=== PATIENT | female | born 1990 | race Caucasian/White ===

== ENCOUNTER → 2020-07-01 08:56 | Outpatient (BNVA) | payer MEDICAID, SELFPAY | PROVIDERS: Family Provider Family Medicine; PCP Nurse Practitioner Family; Visit Provider Obstetrics & Gynecology | DX: Z34.81 Encounter for supervision of other normal pregnancy, first trimester (principal) | CPT/HCPCS: 81025 ==

== ENCOUNTER → 2020-07-05 13:33 | Outpatient (BNVA) | payer MEDICAID, SELFPAY | PROVIDERS: Family Provider Family Medicine; PCP Nurse Practitioner Family; Visit Provider Nurse Practitioner Women's Health | DX: Z34.81 Encounter for supervision of other normal pregnancy, first trimester (principal); Z82.79 Family history of other congenital malformations, deformations and chromosomal abnormalities | CPT/HCPCS: 81000 ==

== ENCOUNTER → 2020-07-18 13:08 | Outpatient (BNVA) | payer MEDICAID, SELFPAY | PROVIDERS: Family Provider Family Medicine; PCP Nurse Practitioner Family; Visit Provider Obstetrics & Gynecology | DX: O99.411 Diseases of the circulatory system complicating pregnancy, first trimester (principal); R00.0 Tachycardia, unspecified; O99.611 Diseases of the digestive system complicating pregnancy, first trimester; K21.9 Gastro-esophageal reflux disease without esophagitis; R10.11 Right upper quadrant pain; Z82.79 Family history of other congenital malformations, deformations and chromosomal abnormalities; Z3A.10 10 weeks gestation of pregnancy | CPT/HCPCS: 80076; 80307; 81000; 84443; 85027; 86592; 86762; 86803; 86850; 86900; 87086; 87340; 87806 ==

== ENCOUNTER → 2020-07-25 08:33 | Outpatient (BNVA) | payer MEDICAID, SELFPAY | PROVIDERS: Family Provider Family Medicine; PCP Nurse Practitioner Family; Visit Provider Obstetrics & Gynecology | DX: Z34.81 Encounter for supervision of other normal pregnancy, first trimester (principal) | CPT/HCPCS: 81000; 88175 ==

== ENCOUNTER → 2020-08-26 13:07 | Outpatient (BNVA) | payer MEDICAID, SELFPAY | PROVIDERS: Family Provider Family Medicine; PCP Nurse Practitioner Family; Visit Provider Nurse Practitioner Women's Health | DX: Z34.82 Encounter for supervision of other normal pregnancy, second trimester (principal) | CPT/HCPCS: 81000; 82105; 87491; 87591; 87661 ==

== ENCOUNTER → 2020-09-26 10:40 | Outpatient (BNVA) | payer MEDICAID, SELFPAY | PROVIDERS: Family Provider Family Medicine; PCP Nurse Practitioner Family; Visit Provider Obstetrics & Gynecology | DX: Z34.82 Encounter for supervision of other normal pregnancy, second trimester (principal) | CPT/HCPCS: 81000 ==

== ENCOUNTER → 2020-10-24 09:10 | Outpatient (BNVA) | payer MEDICAID, SELFPAY | PROVIDERS: Family Provider Family Medicine; PCP Nurse Practitioner Family; Visit Provider Obstetrics & Gynecology | DX: Z34.82 Encounter for supervision of other normal pregnancy, second trimester (principal) | CPT/HCPCS: 81000 ==

== ENCOUNTER → 2020-11-21 08:42 | Outpatient (BNVA) | payer MEDICAID, SELFPAY | PROVIDERS: Family Provider Family Medicine; PCP Nurse Practitioner Family; Visit Provider Obstetrics & Gynecology | DX: Z34.82 Encounter for supervision of other normal pregnancy, second trimester (principal); Z82.79 Family history of other congenital malformations, deformations and chromosomal abnormalities | CPT/HCPCS: 81000; 82950; 85025 ==

== ENCOUNTER 2020-12-05 15:40 | Outpatient (CLI) | payer MEDICAID, SELFPAY ==
[2020-12-05 15:52] VITALS: BMI 31.6
[2020-12-05 16:13] VITALS: BP 135/67; PULSE 80; TEMP 36.4
[2020-12-05 16:17] LABS: Basophils % 0.3 %; Eosinophils # 0.1 10^3/uL (0.0-0.8); Eosinophils % 0.8 %; Hemoglobin 12.7 g/dL (11.5-15.3); Lymphocytes # 1.8 10^3/uL (0.8-4.8); Lymphocytes % 18.6 %; Mean Corpuscular HGB Conc 32.6 g/dL (30.0-36.0); Mean Corpuscular Hemoglobin 29.5 pg (28.0-34.0); Mean Corpuscular Volume 90.5 fL (81-99); Monocytes # 0.5 10^3/uL (0.2-0.9); Monocytes % 5.6 %; Neutrophils # 7.02 10^3/uL (1.8-7.7); Neutrophils % 73.7 %; Nucleated Red Blood Cells % 0 %; Platelet Count 166 10^3/cmm (130-400); Red Blood Count 4.31 10^6/uL (4.1-5.3); Red Cell Distribution Width 12.4 % (12.1-15.1); White Blood Count 9.5 10^3/uL (4.0-10.0)
[2020-12-05 16:28] VITALS: BP 122/60; PULSE 87
[2020-12-05 16:31] LABS: Alanine Aminotransferase 12 U/L (0-33); Albumin Level 4.2 g/dL (3.5-5.2); Alkaline Phosphatase 119 IU/L (35-105); Anion Gap 17.7 (5-19); Aspartate Amino Transferase 19 U/L (0-32); Blood Urea Nitrogen 6 mg/dL (6-20); Calcium 9.1 mg/dL (8.5-10.5); Carbon Dioxide 23 mmol/L (22-29); Chloride 102 mmol/L (98-107); Globulin 2.8 g/dL (1.3-4.6); Glomerular Filtration Rate 143.9 mL/min (90-130); Glucose 91 mg/dL (65-115); Osmolality Calculated 285 mOsm/kg (285-295); Potassium 3.7 mmol/L (3.5-5.1); Sodium 139 mmol/L (136-145); Total Bilirubin 0.2 mg/dL (0.15-1.2); Uric Acid 2.9 mg/dL (2.4-5.7)
[2020-12-05 16:38] LABS: Urine Creatinine 62 mg/dL (28-217); Urine Protein Random 9 mg/dL
[2020-12-05 16:39] LABS: UPRO/UCREAT Ratio 0.15 mg/mg CR
[2020-12-05 16:43] VITALS: BP 128/64; PULSE 88
[2020-12-05 16:45] LABS: Add Urine Culture? No; Bilirubin Urine Neg (Negative); Blood Urine Neg (Negative); Glucose Urine UA Norm (Normal); Ketones Urine Negative (Negative); Leukocyte Esterase Urine Negative (Negative); Nitrate Urine Negative (Negative); Protein Urine Neg (Negative); RBC Urine 0-4 /hpf (0-2); Urine Appearance Clear (CLEAR); Urine Color Yellow (Yellow); Urobilinogen Urine Norm (Negative); pH Urine 6.5 (5-7)
[2020-12-05 16:58] VITALS: BP 128/66; PULSE 80
[2020-12-06 16:31] LABS: Total Volume, Urine 1600 mL
[2020-12-06 23:19] LABS: Urine Total Protein 9.3 mg/24HR (0-150); Urine Total Protein 24 Hour 148.8 mg/dL (0-150)
== END 2020-12-05 17:20 | disposition home or self-care (01) ==
LOC: OPOB 15:47 → OBGYN 15:48
PROVIDERS: Obstetrics & Gynecology; Family Provider Family Medicine; PCP Nurse Practitioner Family; Visit Provider Obstetrics & Gynecology
DX: O16.9 Unspecified maternal hypertension, unspecified trimester (principal); Z3A.00 Weeks of gestation of pregnancy not specified
CPT/HCPCS: 36415; 59025; 80053; 81000; 81001; 82570; 84156; 84550; 85025; 99211

== ENCOUNTER 2020-12-06 10:55 | Outpatient (CLI) | payer MEDICAID, SELFPAY | END 2020-12-06 10:56 | disposition home or self-care (01) | LOC: LAB 12-09 10:56 | PROVIDERS: PCP Nurse Practitioner Family; Visit Provider Obstetrics & Gynecology | DX: I95.89 Other hypotension (principal) | CPT/HCPCS: 84156 ==

== ENCOUNTER → 2020-12-15 08:52 | Outpatient (BNVA) | payer MEDICAID, SELFPAY | PROVIDERS: PCP Nurse Practitioner Family; Visit Provider Obstetrics & Gynecology | DX: Z34.82 Encounter for supervision of other normal pregnancy, second trimester (principal) | CPT/HCPCS: 81000 ==

== ENCOUNTER 2020-12-28 08:42 | Outpatient (CLI) | payer MEDICAID, SELFPAY | END 2020-12-28 08:43 | disposition home or self-care (01) | LOC: LAB 02-08 10:16 | PROVIDERS: PCP Nurse Practitioner Family; Visit Provider Obstetrics & Gynecology | DX: Z34.80 Encounter for supervision of other normal pregnancy, unspecified trimester (principal) | CPT/HCPCS: 81000 ==

== ENCOUNTER → 2021-01-16 08:43 | Outpatient (BNVA) | payer MEDICAID, SELFPAY | PROVIDERS: PCP Nurse Practitioner Family; Visit Provider Obstetrics & Gynecology | DX: Z34.80 Encounter for supervision of other normal pregnancy, unspecified trimester (principal) | CPT/HCPCS: 81000; 87081 ==

== ENCOUNTER 2021-01-23 10:16 | Outpatient (CLI) | payer MEDICAID, SELFPAY ==
[2021-01-23] VITALS (8 sets, daily range): BP systolic 127–141; BP diastolic 74–82; PULSE 71–80; RESP 18; TEMP 36.2; BMI 34.9
[2021-01-23 10:45] LABS: Add Urine Microscopic? NO; Charge for UA Resulting for Rev
[2021-01-23 10:49] LABS: Bilirubin Urine Neg (Negative); Blood Urine Neg (Negative); Glucose Urine UA Norm (Normal); Ketones Urine Negative (Negative); Leukocyte Esterase Urine Negative (Negative); Nitrate Urine Negative (Negative); Protein Urine Neg (Negative); Specific Gravity, Urine 1.005 (1.005-1.030); Urine Appearance Clear (CLEAR); Urine Color Straw (Yellow); Urobilinogen Urine Norm (Negative); pH Urine 7 (5-7)
[2021-01-23 10:52] LABS: Basophils % 0.3 %; Eosinophils # 0.1 10^3/uL (0.0-0.8); Eosinophils % 0.7 %; Hematocrit 39.2 % (37.0-47.0); Hemoglobin 12.7 g/dL (11.5-15.3); Lymphocytes # 1.4 10^3/uL (0.8-4.8); Lymphocytes % 15.4 %; Mean Corpuscular HGB Conc 32.4 g/dL (30.0-36.0); Mean Corpuscular Hemoglobin 29.2 pg (28.0-34.0); Mean Corpuscular Volume 90.1 fL (81-99); Mean Platelet Volume 13.1 fL (7.4-10.4); Monocytes # 0.5 10^3/uL (0.2-0.9); Monocytes % 5.3 %; Neutrophils # 7.04 10^3/uL (1.8-7.7); Nucleated Red Blood Cells % 0 %; Platelet Count 136 10^3/cmm (130-400); Red Blood Count 4.35 10^6/uL (4.1-5.3); Red Cell Distribution Width 12.7 % (12.1-15.1); White Blood Count 9.1 10^3/uL (4.0-10.0)
[2021-01-23 11:10] LABS: Alanine Aminotransferase 11 U/L (0-33); Albumin Level 3.7 g/dL (3.5-5.2); Alkaline Phosphatase 150 IU/L (35-105); Anion Gap 14.9 (5-19); Aspartate Amino Transferase 18 U/L (0-32); Blood Urea Nitrogen 7 mg/dL (6-20); Calcium 8.9 mg/dL (8.5-10.5); Carbon Dioxide 22 mmol/L (22-29); Chloride 102 mmol/L (98-107); Glomerular Filtration Rate 143.9 mL/min (90-130); Glucose 76 mg/dL (65-115); Osmolality Calculated 277 mOsm/kg (285-295); Potassium 3.9 mmol/L (3.5-5.1); Sodium 135 mmol/L (136-145); Total Bilirubin 0.2 mg/dL (0.15-1.2); Total Protein 6.7 g/dL (6.6-8.7); Uric Acid 4.4 mg/dL (2.4-5.7)
[2021-01-23 11:46] LABS: Urine Creatinine 23 mg/dL (28-217); Urine Protein Random 5 mg/dL
[2021-01-23 11:47] LABS: UPRO/UCREAT Ratio 0.22 mg/mg CR
--- NOTE | 2021-01-23 12:40 | PC.NURSE ---
SPECIAL ORDERS FOR PATIENT TO TAKE B/P TWICE A DAY AND KEEP RECORD AND BRING THEM WITH HER ON SATURDAY WHEN SHE COMES IN FOR NST.
== END 2021-01-23 12:10 | disposition home or self-care (01) ==
LOC: OPOB 10:18 → OBGYN 10:20
PROVIDERS: PCP Nurse Practitioner Family; Visit Provider Obstetrics & Gynecology
DX: O16.9 Unspecified maternal hypertension, unspecified trimester (principal)
CPT/HCPCS: 59025; 80053; 81000; 81003; 82570; 84156; 84550; 85025; 99211

== ENCOUNTER 2021-01-26 16:05 | Outpatient (CLI) | payer MEDICAID, SELFPAY ==
[2021-01-26 16:05] VITALS: BMI 33.7
[2021-01-26 16:25] VITALS: BP 130/82; PULSE 85; TEMP 36.4
[2021-01-26 16:30] VITALS: RESP 16
[2021-01-26 16:35] VITALS: BP 127/78; PULSE 86
[2021-01-26 16:45] VITALS: BP 126/78; PULSE 106
[2021-01-26 16:55] VITALS: BP 128/76; PULSE 92
== END 2021-01-26 17:05 | disposition home or self-care (01) ==
LOC: OPOB 16:12 → OBGYN 16:15
PROVIDERS: PCP Nurse Practitioner Family; Visit Provider Obstetrics & Gynecology
DX: O13.9 Gestational [pregnancy-induced] hypertension without significant proteinuria, unspecified trimester (principal); Z3A.00 Weeks of gestation of pregnancy not specified
CPT/HCPCS: 59025; 99211

== ENCOUNTER 2021-01-30 13:18 | Inpatient (IN) | payer MEDICAID, SELFPAY ==
[2021-01-30] VITALS (40 sets, daily range): BP systolic 120–149; BP diastolic 58–103; PULSE 75–173; RESP 16–18; TEMP 36.4–37.6; BMI 33.5
[2021-01-30 10:12] LABS: Add Urine Microscopic? NO; Charge for UA Resulting for Rev
[2021-01-30 10:27] LABS: Basophils % 0.4 %; Eosinophils % 0.4 %; Hematocrit 38.5 % (37.0-47.0); Hemoglobin 12.3 g/dL (11.5-15.3); Lymphocytes # 0.9 10^3/uL (0.8-4.8); Lymphocytes % 16.3 %; Mean Corpuscular HGB Conc 31.9 g/dL (30.0-36.0); Mean Corpuscular Hemoglobin 28.9 pg (28.0-34.0); Mean Corpuscular Volume 90.6 fl (81-99); Mean Platelet Volume 12.9 fL (7.4-10.4); Monocytes # 0.5 10^3/uL (0.2-0.9); Monocytes % 7.9 %; Neutrophils # 4.22 10^3/uL (1.8-7.7); Neutrophils % 74.1 %; Nucleated Red Blood Cells % 0 %; Platelet Count 117 10^3/cmm (130-400); Red Blood Count 4.25 10^6/uL (4.1-5.3); Red Cell Distribution Width 13.2 % (12.1-15.1); White Blood Count 5.7 10^3/uL (4.0-10.0)
[2021-01-30 10:29] LABS: Bilirubin Urine Neg (Negative); Blood Urine Neg (Negative); Glucose Urine UA Norm (Normal); Ketones Urine Negative (Negative); Leukocyte Esterase Urine Negative (Negative); Nitrate Urine Negative (Negative); Protein Urine Neg (Negative); Specific Gravity, Urine 1.005 (1.005-1.030); Urine Appearance Clear (CLEAR); Urine Color Yellow (Yellow); Urobilinogen Urine Norm (Negative); pH Urine 7 (5-7)
[2021-01-30 10:40] LABS: Alanine Aminotransferase 10 U/L (0-33); Albumin Level 3.6 g/dL (3.5-5.2); Alkaline Phosphatase 158 IU/L (35-105); Aspartate Amino Transferase 19 U/L (0-32); Blood Urea Nitrogen 7 mg/dL (6-20); Calcium 8.4 mg/dL (8.5-10.5); Carbon Dioxide 20 mmol/L (22-29); Chloride 105 mmol/L (98-107); Globulin 2.7 g/dL (1.3-4.6); Glomerular Filtration Rate 143.9 mL/min (90-130); Glucose 70 mg/dL (65-115); Osmolality Calculated 282 mOsm/kg (285-295); Sodium 138 mmol/L (136-145); Total Bilirubin 0.2 mg/dL (0.15-1.2); Total Protein 6.3 g/dL (6.6-8.7); Uric Acid 4.9 mg/dL (2.4-5.7)
[2021-01-30 10:41] LABS: Urine Creatinine 27 mg/dL (28-217); Urine Protein Random 6 mg/dL
[2021-01-30 10:43] LABS: Anion Gap 17.4 (5-19); Potassium 4.4 mmol/L (3.5-5.1)
[2021-01-30 10:43] LABS: UPRO/UCREAT Ratio 0.22 mg/mg CR
[2021-01-30] MEDS: miSOPROStol 100 mcg tablet 25 MCG VAGINAL (13:08)
[2021-01-30] MEDS: dextrose 5%-lactated ringers 1,000 ML 125 ML IV (17:17)
[2021-01-30] MEDS: oxytocin 30 UNIT/500 ML BAG IV (17:17)
[2021-01-30] MEDS: fentaNYL 50 mcg/mL INJ 2mL IVP (18:51)
--- NOTE | 2021-01-30 20:45 | P.HPUD_ITS ---
Labor & Delivery H&P Update Date of Procedure: January 30, 2021 Date H&P Performed: 01/23/21 H&P update information: I have reviewed H&P completed within last 30 days, I have examined patient prior to procedure and H&P is in [facility] EMR on date indicated Changes to previous documentation: Elevated blood pressure-rule out preeclampsia-diagnosis of gestational hypertension Admission Diagnosis:
--- NOTE | 2021-01-30 21:46 | PM.DELIVERY ---
Delivery Note: Date of delivery: January 30, 2021 - PRE-DELIVERY DIAGNOSIS: 30-year-old 4 para 2-0-1-2 at 38 weeks and 6 days gestation Induction of labor for gestational hypertension GBS negative Declined Covid screening POST-DELIVERY DIAGNOSIS: Vaginal delivery on 01/30/2021 Gestational hypertension PROCEDURE: Vaginal delivery on 01/30/2021 ANESTHESIA: None DELIVERING PHYSICIAN: Isabell Davis FACOG PRE-DELIVERY COURSE: Ms. Whitaker is a 30-year-old 4 para 2-0-1-2 at 38 weeks and 6 days who received care with Dr. Leroy at [facility]. She presented for a routine scheduled visit on 01/30/2021 and was noted to have a blood pressure in the 160s over 110s and was sent over to labor and delivery for further evaluation. She had a similarly elevated blood pressure at her previous visit and have the diagnosis of gestational hypertension. On labor and delivery blood pressures were largely normal with occasional 1 4 also over 90s but no further elevations in the severe range. Preeclamptic labs were done and were normal except for mild thrombocytopenia with a platelet count of 117,000. Protein creatinine ratio was 0.22. Given the diagnosis of gestational hypertension and the fact that she was 38 weeks and 6 days induction of labor was recommended and induction was started under the care of Dr. Monzon with Cytotec placed at noon. Prior to placement of Cytotec her cervix was 2 cm 50% and -3 station and she was 3 cm 50% and -3 station 4 hours later. She had a regular contractions and Pitocin was started at 5:20 PM. Pitocin was titrated to a maximum of 3 mIU and she had regular contractions every 2 to 3 minutes. She had spontaneous rupture of membranes at 6:30 PM on 01/30/2021 with clear fluid. Cervix was 4 cm 70% and -2 station and the head was well applied. She grew uncomfortable after this. She was 7 cm an hour later and Pitocin was turned off as she was progressing well. She continued to progress well and was fully dilated at 9:18 PM and +2 station and feeling the urge to push. tracing was category 1 thus far. She remains largely normotensive for the remainder of her labor course. She denies any preeclamptic symptoms. DELIVERY NOTE: She was set up in lithotomy position and was pushing effectively. She was noted to be +3 station and continued pushing well. The head delivered in KESHIA position, nuchal cord x1 was present and was unable to be reduced.. The shoulders and rest of the body followed with her next push and delivered through the nuchal cord without any difficulty. The baby's mouth and nose were suctioned and the baby was placed on the mother's belly. Once cord pulsations stopped the cord was clamped and cut. The placenta delivered spontaneously intact with membranes and was discarded. The fundus was noted to be firm and well contracted. The vagina and cervix were inspected and no cervical or sulcal lacerations were noted. The perineum was noted to be intact Baby boy, Jeremy born at 21:22 PM on 01/30/2021 with 8/8/9, weighing 8 pounds 4 ounces, 3750 g, 20-3/4 inches long. Placenta was delivered spontaneously intact with membranes at 20 1:29 PM. Cotyledons were intact , eccentrically inserted umbilical cord with 3 vessels noted. Estimated blood loss -150 mL. Complications-none, both baby and mother were left to recover in a stable condition This documentation was created by [employer] mogul operator software (known for inherent mogul operator error). Every effort was made to assure accuracy of mogul operator. Any obvious errors or omissions should be clarified with the author of the document. Coding Level of Care Code Acute Cad Administrator for Raman Kelly
[2021-01-30] MEDS: ibuprofen 800 mg tablet PO (22:26)
[2021-01-30] MEDS: benzocaine-menthol 78 gm Canister 1 SPRAY TOPICAL (22:27)
[2021-01-30] MEDS: lanolin oint 7 gm 1 APPLIC TOPICAL (22:27)
[2021-01-31] VITALS (21 sets, daily range): BP systolic 115–138; BP diastolic 58–73; PULSE 65–97; TEMP 36.1–37.1; O2SAT 97–99
[2021-01-31] MEDS: ibuprofen 800 mg tablet PO ×3 (09:03→21:25)
[2021-01-31] MEDS: docusate sodium 100 mg Capsule PO ×2 (09:03→17:53)
[2021-01-31] MEDS: prenatal vitamin Capsule 1 CAP PO (09:04)
--- NOTE | 2021-01-31 10:20 | PM.PN ---
Subjective Subjective: Interval history: SUBJECTIVE: Ms Whitaker is doing well today. She states that she is just having some cramping while breast-feeding but otherwise pain is overall pretty well controlled. She denies any vaginal bleeding and is bonding well with her son. She denies fever, chills, shortness of breath and chest pain is overall feeling pretty good. She denies any dizziness, nausea, vomiting. She has no questions or concerns and wants to stay until tomorrow to recover well from that leg.. She does not want her son to have a circumcision. OBJECTIVE/PHYSICAL EXAM: Gen.: No acute distress Heart: S1-S2 heard, regular rate and rhythm Lungs: Clear to auscultation bilaterally Abdomen: Soft, fundus firm below umbilicus, Legs: No calf tenderness, trace bilateral pitting pedal edema. ASSESSMENT AND PLAN: 30-year-old 4 para 3-0-1-3 status post vaginal delivery, day #1 -Continue routine care-p.o. pain medication as needed, encourage ambulation -Perineal care as needed -Postdelivery hemoglobin stable at 12 and platelet count is stable at 116 -Anticipate discharge home tomorrow if she continues to do well -Gestational hypertension-asymptomatic and normotensive since delivery-anticipate 1 week follow-up for blood pressures. Vitals/I&O/Wt Last Vital Signs Temp 97.0 F L 01/31/21 07:30 Pulse 79 01/31/21 08:35 Resp 16 01/30/21 18:51 BP 138/64 01/31/21 08:16 Pulse Ox 97 01/31/21 08:35 01/30/21 01/31/21 01/31/21 22:59 06:59 14:59 Intake Total 906.850 / 906.850 593.150 / 1500.000 Output Total 2400 / 2400 Balance 906.850 / 906.850 -1806.850 / -900.000 Weight last 48 hrs Weight 221 lb Data : 01/31/21 09:57 01/30/21 09:54 Attestations Medical Necessity Statement*: Patient will need to stay 1 more midnight to recover from delivery Coding Level of Care Code Acute Leaf Conditioner Helper for Raman Kelly
[2021-01-31 11:06] LABS: Hematocrit 36.5 % (37.0-47.0); Mean Corpuscular HGB Conc 32.9 g/dL (30.0-36.0); Mean Corpuscular Hemoglobin 29.3 pg (28.0-34.0); Mean Corpuscular Volume 89.2 fl (81-99); Mean Platelet Volume 13.6 fL (7.4-10.4); Platelet Count 116 10^3/cmm (130-400); Red Blood Count 4.09 10^6/uL (4.1-5.3); Red Cell Distribution Width 13.2 % (12.1-15.1); White Blood Count 8.7 10^3/uL (4.0-10.0)
--- NOTE | 2021-01-31 12:14 | PC.NURSE ---
This nurse offered the educational videos to the parents. This is their third child, so they said they would be declining at this time. This nurse took in the & Care book, as well as the Breast Feeding book. The patient and her spouse expressed appreciation for the resources.
--- NOTE | 2021-01-31 13:25 | ANE.PACU2 ---
Inpatient post-anesthesia follow up: Vital signs: Temperature 97.0 F Pulse Rate 79 Respiratory Rate 16 Blood Pressure 138/64 Pulse Oximetry 97 Oxygen Delivery Me thod Room Air Oxygen Flow Rate Fraction of Inspir ed Oxygen Hydration adequate: Yes Nausea and vomiting: No Pain level: 2 Mental status: Baseline
--- NOTE | 2021-01-31 14:24 | PC.NURSE ---
Dietary at bedside taking food order for dinner tonight and breakfast tomorrow.
--- NOTE | 2021-01-31 14:56 | PC.NURSE ---
Patient signed off on certificate at this time. Certificate placed in chart.
--- NOTE | 2021-01-31 18:06 | PC.NURSE ---
Room cleaned up, trash and dirty linens taken out, dinner trays removed, and ice water refreshed by this nurse and Lottie Trujillo RN.
[2021-02-01 04:03] VITALS: BP 129/75; PULSE 93
--- NOTE | 2021-02-01 06:25 | PM.OBGYDC ---
Discharge Providers BODY SHOP MECHANIC Date of Admission: 01/30/21 13:18 Date of Discharge: 02/01/21 Attending Provider at Admission: Saeed Monzon MD Attending Provider at Discharge: marta Primary Care Provider: PRE-DELIVERY DIAGNOSIS: 30-year-old 4 para 2-0-1-2 at 38 weeks and 6 days gestation Induction of labor for gestational hypertension GBS negative Declined Covid screening POST-DELIVERY DIAGNOSIS: Vaginal delivery on 01/30/2021 Gestational hypertension PROCEDURE: Vaginal delivery on 01/30/2021 ANESTHESIA: None DELIVERING PHYSICIAN: Isabell Davis FACELLI PRE-DELIVERY COURSE: Ms. Wihtaker is a 30-year-old 4 para 2-0-1-2 at 38 weeks and 6 days who received care with Dr. Martinez at [facility]. She presented for a routine scheduled visit on 01/30/2021 and was noted to have a blood pressure in the 160s over 110s and was sent over to labor and delivery for further evaluation. She had a similarly elevated blood pressure at her previous visit and have the diagnosis of gestational hypertension. On labor and delivery blood pressures were largely normal with occasional 1 4 also over 90s but no further elevations in the severe range. Preeclamptic labs were done and were normal except for mild thrombocytopenia with a platelet count of 117,000. Protein creatinine ratio was 0.22. Given the diagnosis of gestational hypertension and the fact that she was 38 weeks and 6 days induction of labor was recommended and induction was started under the care of Dr. Monzon with Cytotec placed at noon. Prior to placement of Cytotec her cervix was 2 cm 50% and -3 station and she was 3 cm 50% and -3 station 4 hours later. She had a regular contractions and Pitocin was started at 5:20 PM. Pitocin was titrated to a maximum of 3 mIU and she had regular contractions every 2 to 3 minutes. She had spontaneous rupture of membranes at 6:30 PM on 01/30/2021 with clear fluid. Cervix was 4 cm 70% and -2 station and the head was well applied. She grew uncomfortable after this. She was 7 cm an hour later and Pitocin was turned off as she was progressing well. She continued to progress well and was fully dilated at 9:18 PM and +2 station and feeling the urge to push. tracing was category 1 thus far. She remains largely normotensive for the remainder of her labor course. She denies any preeclamptic symptoms. DELIVERY NOTE: She was set up in lithotomy position and was pushing effectively. She was noted to be +3 station and continued pushing well. The head delivered in KESHIA position, nuchal cord x1 was present and was unable to be reduced.. The shoulders and rest of the body followed with her next push and delivered through the nuchal cord without any difficulty. The baby's mouth and nose were suctioned and the baby was placed on the mother's belly. Once cord pulsations stopped the cord was clamped and cut. The placenta delivered spontaneously intact with membranes and was discarded. The fundus was noted to be firm and well contracted. The vagina and cervix were inspected and no cervical or sulcal lacerations were noted. The perineum was noted to be intact Baby boy, Jeremy born at 21:22 PM on 01/30/2021 with 8/8/9, weighing 8 pounds 4 ounces, 3750 g, 20-3/4 inches long. Placenta was delivered spontaneously intact with membranes at 20 1:29 PM. Cotyledons were intact , eccentrically inserted umbilical cord with 3 vessels noted. Estimated blood loss -150 mL. Complications-none, both baby and mother were left to recover in a stable condition HOSPITAL COURSE: She underwent an uncomplicated vaginal delivery on 01/30/2021. She did well on day 0 and was ambulating well, tolerating regular diet, voiding freely, passing flatus. She was breast-feeding without difficulty and bonding well with her son. She did not want him circumcised. Pain was well-controlled with by mouth pain medication. She denied nausea, vomiting, fever, chills, shortness of breath, leg pain. She had moderate vaginal bleeding. On day # 1 she continued to do well with stable vital signs and stable hemoglobin at 12. She continued to do well on day 2 and remained completely normotensive. She was discharged home on day 2 in a stable condition. Warning signs for endometritis, mastitis, DVT/PE were reviewed with her. Post delivery activity restrictions were also reviewed with her at all her questions were answered to her satisfaction. She will discuss contraception with Dr. Martinez at her 6-week visit. EXAM AT DISCHARGE: Gen.: No acute distress Heart: S1-S2 heard, regular rate and rhythm Lungs: Clear to auscultation bilaterally Abdomen: Soft, fundus firm below umbilicus, Legs: No calf tenderness, +1 bilateral pitting pedal edema. CONDITION AT DISCHARGE: Stable This documentation was created by [employer] manager engagement software (known for inherent manager engagement error). Every effort was made to assure accuracy of manager engagement. Any obvious errors or omissions should be clarified with the author of the document. Reason for Visit Reason for Visit: Induction of labor Information Peripartum Data: Infant Delivery Method: Vaginal Discharge Data Data Completed and Pending: Labs from last 24 hours 01/31/21 09:57 WBC 8.7 RBC 4.09 L Hgb 12.0 Hct 36.5 L MCV 89.2 MCH 29.3 MCHC 32.9 RDW 13.2 Plt Count 116 L MPV 13.6 H Vitals: Last Vital Signs Temp 97.0 F L 01/31/21 15:57 Pulse 93 02/01/21 04:03 Resp 16 01/30/21 18:51 BP 129/75 02/01/21 04:03 Pulse Ox 99 01/31/21 15:57 Discharge Plan Discharge Patient Disposition: Home Condition: Stable Prescriptions: New docusate sodium 100 mg Capsule 100 mg PO BID PRN (Reason: constipation) Qty: 30 RF: 0 ibuprofen 800 mg tablet 800 mg PO Q8H Qty: 30 RF: 0 No Action No Known Home Medications RF: 0 Discharge Orders: Discharge Order (Routine); Ordered 02/01/21 Ordered By: Isabell Andrade Referrals: Pema Martinez MD [Physician] - (1 week and [address] martinez) Discharge Diet: Usual diet Discharge Activity: Limit activity as instructed Patient Instructions: Opioid Safety Activity Restrictions/Additional Instructions: Pelvic rest for 6 weeks, no heavy lifting for 6 weeks 1 week blood pressure check in 6-week with Dr. Martinez Discharge Attestations BODY SHOP MECHANIC Time Spent in Discharge Care*: greater than 30 min Coding Level of Care Code Acute Car Refinisher for Raman Kelly
[2021-02-01 08:26] VITALS: BP 138/72; PULSE 91
[2021-02-01 08:30] VITALS: BP 138/72; PULSE 91; RESP 18; TEMP 36.4
[2021-02-01 09:00] VITALS: BP 138/72; PULSE 91; RESP 18; TEMP 36.4
== END 2021-02-01 08:55 | disposition home or self-care (01) | DRG 806 ==
LOC: OPOB 01-31 05:38 → OBGYN 01-31 05:38
PROVIDERS: Obstetrics & Gynecology; Admitting Provider Obstetrics & Gynecology; PCP Nurse Practitioner Family; Visit Provider Obstetrics & Gynecology
DX: O13.3 Gestational [pregnancy-induced] hypertension without significant proteinuria, third trimester (principal); O99.113 Other diseases of the blood and blood-forming organs and certain disorders involving the immune mechanism complicating pregnancy, third trimester; Z37.0 Single live birth; D69.6 Thrombocytopenia, unspecified; O69.81X0 Labor and delivery complicated by cord around neck, without compression, not applicable or unspecified; Z82.49 Family history of ischemic heart disease and other diseases of the circulatory system; Z3A.38 38 weeks gestation of pregnancy; Z23 Encounter for immunization; Z84.89 Family history of other specified conditions
CPT/HCPCS: 36415; 59025; 59409; 80053; 81000; 81003; 82570; 84156; 84550; 85025; 85027; 96374; 99211; J3010

== ENCOUNTER 2022-11-25 12:43 | Outpatient (CLI) | payer MEDICAID, SELFPAY ==
--- NOTE | 2022-11-25 13:44 | XRR_ITS ---
PROCEDURE INFORMATION: Exam: XR Left Hand Exam date and time: 11/25/2022 1:45 PM Age: 32 years old Clinical indication: Injury or trauma; Other: Smashed 2nd digit; Blunt trauma (contusions or hematomas); Hand; Left; Additional info: Left hand pain, got hand smashed between horse and shipping container this morning TECHNIQUE: Imaging protocol: Radiologic exam of the left hand. Views: 3 or more views. COMPARISON: No relevant prior studies available. FINDINGS: Bones/joints: Osseous structures are intact. Negative for fracture. Soft tissues: Normal. XR/XR hand LT min 3V* [id number] IMPRESSION: No acute findings.
== END 2022-11-25 12:44 | disposition home or self-care (01) ==
PROVIDERS: PCP Nurse Practitioner Family; Visit Provider Nurse Practitioner Family
DX: M79.642 Pain in left hand (principal); W23.2XXA Caught, crushed, jammed or pinched between a moving and stationary object, initial encounter; Y99.9 Unspecified external cause status; Y92.9 Unspecified place or not applicable
CPT/HCPCS: 73130

== ENCOUNTER 2022-11-27 07:30 | Day surgery (SDC) | payer MEDICAID, SELFPAY ==
[2022-11-26 12:38] VITALS: BMI 25.2
[2022-11-27] VITALS (11 sets, daily range): BP systolic 91–124; BP diastolic 71–84; PULSE 51–78; RESP 15–18; TEMP 36.1–36.4; O2SAT 92–100
[2022-11-27] MEDS: CELEcoxib 200 mg Capsule 400 MG PO (07:51)
[2022-11-27] MEDS: scopolamine 1.5 Patch 1 PATCH TRANSDERMA (07:51)
[2022-11-27] MEDS: phenazopyridine 100 mg Tablet 200 MG PO (07:52)
[2022-11-27] MEDS: gabapentin 300 mg Capsule PO (07:52)
[2022-11-27] MEDS: sodium chloride 0.9% 1,000 ML 30 ML IV (07:58)
[2022-11-27] MEDS: acetaminophen 1,000 MG/100 ML PIGGYBACK 400 MG IV (07:58)
--- NOTE | 2022-11-27 09:05 | W.PM.OPSUD ---
Surgery/Procedure H&P Update DATE OF PROCEDURE: November 27, 2022 DATE H&P PERFORMED: 11/22/22 H&P UPDATE INFORMATION: I have reviewed H&P completed within last 30 days, I have examined patient prior to procedure and No changes to prior documentation PREOP DIAGNOSIS: desires sterilization PLANNED PROCEDURE: Operation Date: 11/27/22 09:05 Proposed Procedures p Laparoscopic bilateral salpingectomy 63724, Z30.2(Not Applicable) - Pema Leroy MD Related Problem List Diagnoses (1) Sterilization consult:
[2022-11-27] MEDS: ceFAZolin 2,000 MG in sodium chloride 0.9% (plus) 50 ML 100 MG IV (09:19)
--- NOTE | 2022-11-27 10:19 | ANES.PREANE2 ---
Pre-Anesthetic Assessment Height/Weight: Height 1.73 m Weight 75.296 kg Temp Pulse Resp BP Pulse Ox O2 Del Method 97.5 F L 78 18 117/82 98 Room Air 11/27/22 07:44 11/27/22 07:44 11/27/22 07:44 11/27/22 07:44 11/27/22 07:44 11/27/22 07:45 Preop Diagnosis: desires sterilization Operation Date: 11/27/22 09:05 Proposed Procedures p Laparoscopic bilateral salpingectomy 66107, Z30.2(Not Applicable) - Pema Leroy MD Familial anesthetic complications: none Was Beta Esteban taken within 24 hours: Yes Was Clonidine taken within 24 hours: N/A Last intake: Intake Last Liquid Date 11/26/22 Last Liquid Time 20:00 Last Solid Date 11/26/22 Last Solid Time 17:00 Social No alcohol and No tobacco Exam alert, oriented x 3, clear to auscultation bilaterally and regular rate & rhythm Airway Submandibular: within normal limits Cervical ROM: within normal limits Mallampati: Class II Dentition: full CV/HEM Arrythmia GI Gastroesophageal Reflux Disease Anesthetic Plan ASA status: 2 Anesthesia: General Medications/Allergies Home Medications Medication Instructions Recorded Confirmed Last Taken Type metoprolol tartrate 50 mg tablet 50 mg PO DAILY PRN Blood Pressure 03/13/21 11/26/22 11/27/22 07:30 History Allergies Allergy/AdvReac Type Severity Reaction Status Date / Time No Known Allergies Allergy Verified 11/27/22 07:39 Current Medications Generic Name Dose Route Start Last Admin Trade Name Freq PRN Reason Stop Dose Admin Sodium Chloride 1,000 mls @ 30 mls/hr 11/27/22 07:45 11/27/22 07:58 Sodium Chloride 0.9% IV 11/28/22 07:44 30 mls/hr .Q24H ERICA Administration PFSH Anesthesia Medical History No pertinent past medical history neghx: htn,dm,thyroid,dvt/pe,herpes ---denies partner with herpes PCP: Alecia Gifford Surgical History Hx of elbow surgery Family History Father Hypertension Grandfather Hypertension Paternal Mother Thyroid disease Denies family history of Colon cancer Ovarian cancer Diabetes Heart disease Hypercholesteremia Breast cancer Uterine cancer Stroke Social History Alcohol intake: never Substance/Drug Use: never Data Anesthesia Cardiac Studies: No Data to Display
--- NOTE | 2022-11-27 10:34 | PM.OP ---
Operative Report Date of procedure: November 27, 2022 Pre-op diagnosis: Preop Diagnosis desires sterilization Post-op diagnosis: same Post-op findings: 8 week sized uterus. Normal appearing tubes and ovaries Procedure done: laparoscopic bilateral salpingectomy Specimens removed/disposition: bilateral fallopian tubes to pathology Surgeon: Pema Leroy Anesthesia: General Estimated blood loss (mL): 0 IV fluids (mL): 50 Urine output (mL): 100 Complications: none Condition: stable Disposition: PACU Procedure: The patient was taken to the operating room where general anesthesia was administered and found to be adequate. She was prepped and draped in the normal sterile fashion in the dorsal lithotomy position in [facility]. A Paulino catheter was placed. A weighted speculum was placed into the vagina and the anterior lip of the cervix grasped with a single-tooth tenaculum. A [employer] uterine manipulator was placed. The gloves were changed and attention was turned to the laparoscopic portion of the case. A 5 mm supraumbilical incision was made. The 5 mm trocar was placed using the easy view trocar. Intra-abdominal placement was confirmed and CO2 gas was used to insufflate the abdomen. Using direct visualization and illumination of the abdominal wall, two 5 mm incisions were made low and lateral. One on the left and one on the right. The 5mm trochars were then placed under direct visualization. Using the uterine manipulator and the grasper, the fallopian tubes were identified. Using the laparoscopic cautery, the fallopian tube was clamped cauterized and cut. First on the right, then on the left. There was excellent hemostasis post removal of the bilateral tubes. Pictures were taken. All instruments were removed. The abdomen was desufflated. The incisions were closed with 4-0 Vicryl. 10 ml of 1/2% bupivicaine was used around the incisions. The patient tolerated the procedure well. Sponge lap and needle counts were correct x3. She was taken to the recovery room in stable condition.
--- NOTE | 2022-11-27 10:41 | PM.DCS ---
Discharge Providers Date of Admission: 11/27/22 Date of Discharge: November 27, 2022 Attending Provider at Admission: Dr. Leroy Attending Provider at Discharge: Pema Leroy MD Primary Care Provider: DANIEL Chan Diagnoses at Discharge Discharge Diagnosis (1) Sterilization consult: Status: Acute Reason for Visit Reason for Visit: 93797 Z30.2 Hospital Course Hospital Course The patient was admitted for surgery. She did well postoperatively and was ready for discharge. Physical Exam Urinary Catheter Management: Paulino: Cath Placed During This Visit: yes, but has since been removed by the nurse Urinary Catheter Date of Insertion: 11/27/22 Urinary Catheter Time of Insertion: 09:58 Date Urinary Catheter Removed: 11/27/22 Time Urinary Catheter Discontinued: 10:20 Discharge Data Studies Completed and Pending Pending at discharge Category Date Time Status Urine Culture Routine Lab 11/27/22 09:53 Received Pathology: Surgical [PTH] Routine Pth 11/27/22 10:30 Ordered Vitals Last Vital Signs Temp 97.5 F L 11/27/22 07:44 Pulse 78 11/27/22 07:44 Resp 18 11/27/22 07:44 BP 117/82 11/27/22 07:44 Pulse Ox 98 11/27/22 07:44 O2 Del Method Room Air 11/27/22 07:45 Discharge Plan Discharge Patient Disposition: Home Condition: Stable Prescriptions: New hydrocodone-acetaminophen 5-325 mg tablet 1 tab PO Q6H Qty: 20 0RF Continued metoprolol tartrate 50 mg tablet 50 mg PO DAILY PRN (Reason: Blood Pressure) Rx Instructions: Take once daily Discharge Orders: Discharge Order (Routine); Ordered 11/27/22 Ordered By: Pema Leroy Discharge Attestations Time Spent in Discharge Care*: less than 30 min Quality Metrics Clinical Quality Measures [ No reported AMI, CVA or VTE this stay] Coding Level of Care Code Acute Code for Chg Fwd Diagnoses Sterilization consult Z30.09
[2022-11-27] MEDS: fentaNYL 50 mcg/mL INJ 2mL IVP (10:45)
[2022-11-27] MEDS: HYDROcodone-acetaminophen 5-325 mg Tablet 1 TAB PO (11:29)
--- NOTE | 2022-11-27 17:44 | ANE.PACU2 ---
Inpatient post-anesthesia follow up: Airway intact: Yes Vital signs: Temperature 97.5 F Pulse Rate 51 Respiratory Rate 16 Blood Pressure 107/80 Pulse Oximetry 99 Oxygen Delivery Me thod Room Air Oxygen Flow Rate Fraction of Inspir ed Oxygen Hydration adequate: Yes Nausea and vomiting: No Pain level: 2 Mental status: Baseline
== END 2022-11-27 12:41 | disposition home or self-care (01) ==
PROVIDERS: PCP Nurse Practitioner Family; Visit Provider Obstetrics & Gynecology
PROC: (CPT 58673; principal; 2022-11-27 08:55)
DX: Z30.2 Encounter for sterilization (principal); K21.9 Gastro-esophageal reflux disease without esophagitis; Z87.891 Personal history of nicotine dependence
CPT/HCPCS: 58661; 81025; 87086; 88302; J0131; J0690; J1100; J2405; J2704; J3010; J3490; J7030